=== PATIENT | male | born 1955 | race Caucasian/White ===

== ENCOUNTER 2017-06-27 08:00 | Inpatient (IN) | payer BC, OTHER ==
[2017-06-27 08:37] VITALS: BMI 32.3
[2017-07-08] MEDS ORDERED: Vancomycin HCl 1.5 GM in Sodium Chloride 0.9% 250 ML 300 ML IVPB ONE (07:15)
[2017-07-08] MEDS ORDERED: Sodium Chloride 0.9% 100 ML ONE (07:20)
[2017-07-08] MEDS ORDERED: Midazolam HCl 2 mg/2 ml Vial ONE (08:06)
[2017-07-08] MEDS ORDERED: Fentanyl 100 MCG/2 ML VIAL ONE ×2 (08:06→10:44)
[2017-07-08] MEDS ORDERED: Ketorolac Tromethamine 30 MG/ML VIAL IVP PRN (08:40)
[2017-07-08] MEDS ORDERED: Ondansetron HCl/PF 4 MG/2 ML Vial IVP PRN ×3 (08:40→11:51)
[2017-07-08] MEDS ORDERED: traMADol HCl 50 MG TAB PO PRN ×3 (08:40→11:51)
[2017-07-08] MEDS ORDERED: HYDROcodone/Acetaminophen 10/325 mg Tablet PO PRN (08:40)
[2017-07-08] MEDS ORDERED: Bupivacaine 0.5% 50 ML in Sodium Chloride 0.9% 50 ML NERVE BLCK SCH (08:40)
[2017-07-08] MEDS ORDERED: Promethazine HCl 25 MG/ML VIAL IM PRN ×3 (08:40→11:51)
[2017-07-08] MEDS ORDERED: Zolpidem Tartrate 5 MG TAB PO PRN ×2 (08:40→11:51)
[2017-07-08] MEDS ORDERED: Fentanyl 100 MCG/2 ML VIAL IV PRN (08:41)
[2017-07-08] MEDS ORDERED: Bupivacaine PF 0.5% 30 ML VIAL ONE (09:47)
[2017-07-08] MEDS ORDERED: CEFAZOLIN/Water 2 GM/20 ML SYRINGE ONE (09:54)
[2017-07-08] MEDS ORDERED: Lidocaine 1% PF 5 ML VIAL ONE (10:42)
[2017-07-08] MEDS ORDERED: PROPOFOL 200 MG/20 ML VIAL ONE (10:42)
[2017-07-08] MEDS ORDERED: Promethazine HCl 25 MG/ML VIAL SLOW IVP PRN (11:00)
[2017-07-08] MEDS ORDERED: Acetaminophen 325 MG TAB PO PRN (11:51)
[2017-07-08] MEDS ORDERED: diphenhydrAMINE 25 MG CAP PO PRN (11:51)
[2017-07-08] MEDS ORDERED: Tranexamic Acid 1,000 MG in Sodium Chloride 0.9% 100 ML IVPB SCH (12:00)
[2017-07-08] MEDS ORDERED: Ropivacaine 0.5% HCl/PF (150 MG/30 ML VIAL) ONE (12:32)
[2017-07-08] MEDS ORDERED: Ropivacaine 0.2% HCl/PF (40 MG/20 ML VIAL) ONE (12:32)
--- NOTE | 2017-07-08 12:41 | OP ---
DATE OF SURGERY: 07/08/2017 PREOPERATIVE DIAGNOSIS: Left knee osteoarthrosis. POSTOPERATIVE DIAGNOSIS: Left knee osteoarthrosis. PROCEDURE PERFORMED: Left total knee replacement using [employer] pinless navigation. SURGEON: Devon Gregory M.D. ENVIRONMENTAL INTERN: Yash Diaz PA-C. BLOOD LOSS: Minimal. COMPLICATIONS: None. He had general anesthetic. He also had a preoperative block. IMPLANTS: To the left knee with a [employer] total knee system. The femur was a size 7 cruci ate retaining. We used a size 7 universal tibial baseplate. We used a 35 x 10 X3 patella. We used a 7 x 9 mm CSX3 tibial bearing. CONDITION: He did go to the recovery room in stable condition. INDICATIONS: A 62-year-old active male who has failed nonoperative treatment for left knee pain and at this time he wanted to have his knee replaced. PROCEDURE IN DETAIL: After all appropriate consent forms were explained and signed, the patient was taken back to the Operating Room and at this time was given general anesthetic. Once the level of an esthesia was appropriate, a well-padded tourniquet was placed on the left leg and the leg was then pr epped and draped in standard surgical fashion. The limb was exsanguinated and tourniquet taken up to 300 mmHg. Midline incision was made with a 10 blade down through the skin and subcutaneous tissue. Bovie electrocautery was used to coagulate any brisk venous bleeding. A new blade was used to make a medial parapatellar arthrotomy. Small subperiosteal release was performed medially and excess fat pad was removed. The knee was flexed up to gain access to the femur. The femur was navigated and di stal femoral resection was made. Epicondylar access was used to align our sizing jig and this was pi nned in place. We sized our femur to be a 7, 4:1 cutting block was applied and pinned. Anterior and posterior chamfer cuts were then made. We navigated out our proximal tibia and made our proximal ti bial resection. Spreaders were used to remove any posterior osteophytes off the back of the femur as well as remaining meniscal tissue. A long alignment philippe was then used to achieve correct rotation o f our tibial baseplate and a size 7 was chosen. This was pinned in place. We trialed the polyethylen e and a 7 x 9 mm CSX3 polyethylene gave us full extension and good stability throughout range of natacha on. Two towel clips and a saw were used to cut our patella. Three lug nuts were drilled and 35 x 10 X3 patella was trialed which sat nicely in the trochlear groove. We then drilled our femur and punc hed our tibia. All components were removed. The knee was thoroughly irrigated and dried. Cement was mixed into the cement gun on the back table. Components were then placed. The knee was held out in full extension until the cement had dried. All excess bone cement was removed. Multiple #2 Vicryl stitches as well as a Quill was used to close our extensor mechanism. 0 Quill followed by a running Monoderm was then used to close the skin. Surgicel glue was then used on the skin. Once this had dr alicja, soft tissue dressing was applied to the limb, tourniquet was let down, and the toes pinked up ni italo. The patient was then awakened and taken to the Recovery Room in stable condition. All counts were correct at the end of the case. The patient did receive preoperative IV antibiotics. The patie nt was injected with Exparel for postoperative pain relief.
[2017-07-08] MEDS ORDERED: hydrALAZINE 20 MG/ML VIAL SLOW IVP PRN (13:11)
[2017-07-08] MEDS: Sodium Chloride 0.9% 1,000 ML IV SCH ×2 (13:26→20:54)
[2017-07-08] MEDS: Ondansetron ODT 4 MG TAB PO PRN (16:38)
[2017-07-08] MEDS ORDERED: metFORMIN 500 MG TAB PO SCH (17:00)
[2017-07-08] MEDS ORDERED: Pravastatin Sodium 20 MG TAB PO SCH (17:00)
[2017-07-08] MEDS ORDERED: CEFAZOLIN/Water 2 GM/20 ML SYRINGE SLOW IVP SCH (18:00)
[2017-07-08] MEDS: metFORMIN 500 MG TAB PO SCH (18:59)
[2017-07-08] MEDS ORDERED: Vancomycin HCl 1.5 GM in Sodium Chloride 0.9% 250 ML 300 ML IVPB SCH (20:00)
[2017-07-08] MEDS: Aspirin 81 mg Enteric Coated Tablet PO SCH (20:45)
[2017-07-08] MEDS: Ferrous Gluconate 324 MG TAB PO SCH (20:45)
[2017-07-08] MEDS: Senokot S 8.6-50 MG TAB PO SCH (20:45)
[2017-07-08] MEDS: CEFAZOLIN/Water 2 GM/20 ML SYRINGE SLOW IVP SCH (20:48)
[2017-07-08] MEDS ORDERED: Simvastatin 5 MG TAB PO SCH (21:00)
--- NOTE | 2017-07-08 23:45 | PDOC.PN ---
- Subjective Encounter Start Date: 07/08/17 Encounter Start Time: 14:30 Patient seen and examined for med mngt. No CP/SOb/palpitations. No new complaints. No overnight events - Objective MAR Reviewed: Yes Vital Signs & Weight: Vital Signs (12 hours) Temp Pulse Resp BP Pulse Ox 07/08/17 19:50 97.9 F 68 18 128/72 97 07/08/17 16:00 97.3 F L 94 20 96 07/08/17 14:07 97.3 F L 94 20 164/74 H 94 L Weight Weight 245 lb I&O: 07/07/17 07/08/17 07/09/17 06:59 06:59 06:59 Intake Total 1870 Output Total 1050 Balance 820 Additional Labs: Accuchecks 07/08/17 13:13 POC Glucose 146 H Laboratory Tests 11/26/11 07/04/17 07/04/17 09:30 10:15 10:15 Hgb 12.1 L Sodium 139 Potassium 4.2 BUN 17 Hemoglobin A1c 4.5 EKG Reviewed by me: Yes (SR) Phys Exam - Physical Examination Constitutional: NAD Respiratory: no wheezing, no rhonchi Cardiovascular: RRR, no rub Gastrointestinal: soft, non-tender, positive bowel sounds Musculoskeletal: no edema Neurological: moves all 4 limbs Dx/Plan (1) HTN (hypertension) Code(s): I10 - ESSENTIAL (PRIMARY) HYPERTENSION Status: Chronic (2) Hypothyroidism Code(s): E03.9 - HYPOTHYROIDISM, UNSPECIFIED Status: Chronic (3) Obesity (BMI 30.0-34.9) Code(s): E66.9 - OBESITY, UNSPECIFIED Status: Chronic (4) Well controlled type 2 diabetes mellitus Code(s): E11.9 - TYPE 2 DIABETES MELLITUS WITHOUT COMPLICATIONS Status: Chronic (5) HLD (hyperlipidemia) Code(s): E78.5 - HYPERLIPIDEMIA, UNSPECIFIED Status: Chronic - Plan plan discussed w/ family, PT/OT, DVT proph w/SCDs Cont Lisinopril, Levothyroxine, Metformin and Statins -: No need to start sliding scale -: Cont current meds as below -: AM labs Review of Systems - Review of Systems Respiratory: negative: Cough, Dry, Shortness of Breath, Hemoptysis, SOB with Excertion, Pleuritic Pain, Sputum, Wheezing Cardiovascular: negative: chest pain, palpitations, orthopnea, paroxysmal nocturnal dyspnea, edema, light headedness, other Gastrointestinal: negative: Nausea, Vomiting, Abdominal Pain, Diarrhea, Constipation, Melena, Hematochezia, Other - Medications/Allergies Allergies/Adverse Reactions: Allergies Allergy/AdvReac Type Severity Reaction Status Date / Time No Known Allergies Allergy Verified 06/27/17 08:38 Medications: Current Medications Acetaminophen (Tylenol) 650 mg PO Q4H PRN PRN Reason: BREWER/ T > 101F; Mild Pain (1-3) Hydrocodone Bitart/Acetaminophen (Leonard 10/325) 1 tab PO Q4H PRN PRN Reason: Pain (1-3) Last Admin: 07/08/17 19:04 Dose: 1 tab Hydrocodone Bitart/Acetaminophen (Leonard 10/325) 2 tab PO Q4H PRN PRN Reason: PAIN (4-6) Allopurinol (Zyloprim) 300 mg PO DAILY [facility] Aspirin (Ecotrin) 81 mg PO BID [facility] Last Admin: 07/08/17 20:45 Dose: 81 mg Cefazolin Sodium (Ancef) 2 gm SLOW IVP 0500,1300,2100 [facility] Stop: 07/09/17 05:01 Last Admin: 07/08/17 20:48 Dose: 2 gm Celecoxib (Celebrex) 200 mg PO DAILY [facility] Cholecalciferol (Vitamin D3) 1,000 units PO DAILY [facility] Diphenhydramine HCl (Benadryl) 25 mg PO Q6H PRN PRN Reason: Itching Fentanyl (Sublimaze) 50 mcg IV Q1H PRN PRN Reason: BT PAIN Ferrous Gluconate (Fergon) 324 mg PO BID [facility] Last Admin: 07/08/17 20:45 Dose: 324 mg Hydralazine HCl (Apresoline) 5 mg SLOW IVP Q4H PRN PRN Reason: SBP Greater Than 180 Bupivacaine HCl 50 ml/ Sodium (Chloride) 100 mls @ 0 mls/hr NERVE BLCK INF [facility] PRN Reason: As Directed Sodium Chloride (Normal Saline 0.9%) 1,000 mls @ 100 mls/hr IV .Q10H [facility] Last Admin: 07/08/17 20:54 Dose: Not Given Iron/Minerals/Multivitamins (Theragran M) 1 tab PO DAILY [facility] Ketorolac Tromethamine (Toradol) 30 mg IVP Q6H PRN PRN Reason: Moderate Pain (4-6) Stop: 07/11/17 08:41 Levothyroxine Sodium (Synthroid) 25 mcg PO 0600 [facility] Lisinopril (Zestril) 5 mg PO DAILY [facility] Metformin HCl (Glucophage) 1,000 mg PO BID-[facility] Last Admin: 07/08/17 18:59 Dose: 1,000 mg Ondansetron HCl (Zofran) 4 mg IVP Q6H PRN PRN Reason: Nausea/Vomiting Ondansetron HCl (Zofran Odt) 4 mg PO Q6H PRN PRN Reason: Nausea/Vomiting Last Admin: 07/08/17 16:38 Dose: 4 mg Promethazine HCl (Phenergan) 12.5 mg IM Q4H PRN PRN Reason: Nausea/Vomiting Senna/Docusate Sodium (Senokot S) 2 tab PO BID [facility] Last Admin: 07/08/17 20:45 Dose: 2 tab Simvastatin (Zocor) 10 mg PO [facility] Last Admin: 07/08/17 20:46 Dose: 10 mg Sodium Chloride (Flush - Normal Saline) 10 ml IVF PRN PRN PRN Reason: Saline Flush Tramadol HCl (Ultram) 100 mg PO Q6H PRN PRN Reason: Mild Pain (1-3) Zolpidem Tartrate (Ambien) 5 mg PO HSPRN PRN PRN Reason: Insomnia
[2017-07-09] MEDS: HYDROcodone/Acetaminophen 10/325 mg Tablet PO PRN ×2 (02:46→13:24)
[2017-07-09 03:57] LABS: Hemoglobin 10.9 g/dL (14.0-18.0); Mean Corpuscular HGB CONC 34.1 g/dL (32.0-36.0); Mean Corpuscular Hemoglobin 30.1 pg (27.0-31.0); Mean Corpuscular Volume 88.4 fl (80.0-94.0); Platelet Count 141 thou/uL (130-400); RBC Distribution Width 12.8 % (11.5-14.5); Red Blood Cell (RBC) Count 3.61 mill/uL (4.70-6.10); White Blood Cell (WBC) Count 9.4 thou/uL (4.8-10.8)
[2017-07-09] MEDS: CEFAZOLIN/Water 2 GM/20 ML SYRINGE SLOW IVP SCH (05:24)
[2017-07-09] MEDS ORDERED: Levothyroxine Sodium 25 MCG TAB PO SCH (06:00)
[2017-07-09] MEDS: metFORMIN 500 MG TAB PO SCH (07:18)
[2017-07-09] MEDS: Ferrous Gluconate 324 MG TAB PO SCH (07:20)
[2017-07-09] MEDS: Senokot S 8.6-50 MG TAB PO SCH (07:21)
[2017-07-09] MEDS: Aspirin 81 mg Enteric Coated Tablet PO SCH (07:21)
[2017-07-09] MEDS: Sodium Chloride 0.9% 1,000 ML IV SCH (07:23)
[2017-07-09] MEDS ORDERED: Multivitamin W/ Minerals 1 TAB PO SCH (09:00)
[2017-07-09] MEDS ORDERED: Lisinopril 5 MG TAB PO SCH (09:00)
[2017-07-09] MEDS ORDERED: Non-Formulary Item 1 EACH (Cholecalciferol (Vitamin D3) [Vitamin D3] 1,000 UNIT) PO SCH (09:00)
[2017-07-09] MEDS ORDERED: Allopurinol 300 MG TAB PO SCH (09:00)
[2017-07-09 09:03] VITALS: BP 136/70; TEMP 98.8
--- NOTE | 2017-07-09 10:28 | DIS ---
DATE OF ADMISSION: 07/08/2017 DATE OF DISCHARGE: 07/09/2017 PRIMARY CARE PHYSICIAN: Martina Frey. DISCHARGE DISPOSITION: Home. PRIMARY DISCHARGE DIAGNOSIS: Status post left total knee replacement. SECONDARY DISCHARGE DIAGNOSES: Normocytic normochromic anemia, diabetes type 2, gout, dyslipidemia, hypertension, hypothyroidism, and obesity with body mass index 32. PRIMARY PROCEDURE/OPERATION: Left total knee replacement by Dr. Bri Osorio. RADIOLOGICAL INVESTIGATION: None. SIGNIFICANT LABORATORY DATA: WBC 9.4, hemoglobin 10.9, platelet 141. Accu-Chek 146. DISCHARGE MEDICATIONS: Allopurinol 300 mg p.o. daily, aspirin 81 mg p.o. b.i.d., vitamin D3 1000 uni ts p.o. daily, Synthroid 25 mcg p.o. daily, lisinopril 5 mg p.o. daily, metformin 1000 mg p.o. b.i.d. , and pravastatin 20 mg p.o. at bedtime. CONTRAINDICATIONS: None. CODE STATUS: FULL CODE. INPATIENT CONSULTANTS: Dr. Bri Osorio was primary while in hospital. Dr. Rizvi was consulted for [facility]. TEST RESULTS PENDING ON DISCHARGE: None. ALLERGIES: No known drug allergy. DISCHARGE PLAN: Post hospital, patient will follow up with primary care physician in 1 week. The yoon parraandra already has outpatient followup for rehabilitation and he will follow up with Dr. Bri whitehead s sonja. HOSPITAL COURSE: A 62-year-old male who has osteoarthritis. He failed all conservative approach and predominantly left knee osteoarthritis was bothering him and it was affecting his quality of life an d that is why he was electively admitted by Dr. Bri Osorio for left total knee replacement which was done on 07/08/2017 without any complication. Postoperatively, the patient did very well. He did no t have any overnight event. His pain is controlled with oral pain medication. He is relatively doin g very well with [facility] protocol treatment. While in hospital, he was given aspirin for DV T prophylaxis. We resumed his home medication while in hospital as well as upon discharge. I have seen and examined at bedside this patient and review of system reviewed with him and negative. PHYSICAL EXAMINATION: VITAL SIGNS: Currently, temperature 98.8, pulse 82, respiratory rate 20, saturation 95% on room air, blood pressure 136/70, weight 245 pounds. GENERAL: The patient is currently alert, awake, no acute distress. HEAD: Normocephalic, atraumatic. EYES: Pupils round and reactive to light. Extraocular muscle intact. ENT: Oropharynx within normal limits. Moist mucous membranes. No oral lesion, no pharyngeal erythe ma, no exudate. NECK: Supple, no JVD, no thyromegaly, no carotid bruit. LUNGS: Clear to auscultation without any rhonchi or rales. CARDIAC: S1 and S2 appears regular without any significant murmur. ABDOMEN: Soft and benign without any tenderness. EXTREMITIES: No edema. Surgical site on the left knee is clean and healthy, covered with a dressing . NEUROLOGIC: Nonfocal examination. Patient will continue above-mentioned medication. Pain medication will be prescribed by primary team . We will sign off.
[2017-07-09] MEDS: Ondansetron ODT 4 MG TAB PO PRN (13:03)
[2017-07-09] MEDS ORDERED: Ropivacaine 0.2% 550 ML 550 ML NERVE BLCK SCH (13:11)
[2017-07-11] MEDS ORDERED: CeleCOXIB 100 MG CAP PO SCH (09:00)
== END 2017-07-09 15:59 | disposition home or self-care (01) | DRG 470 ==
LOC: SURG A 07-08 06:48 → SJJU 07-08 12:44
PROVIDERS: ADMIT Orthopaedic Surgery; ATTEND Orthopaedic Surgery
PROC: 0SRD0J9 Replacement of Left Knee Joint with Synthetic Substitute, Cemented, Open Approach (ICD-10-PCS; principal; 2017-07-08)
DX: M17.12 Unilateral primary osteoarthritis, left knee (principal); I10 Essential (primary) hypertension; E11.9 Type 2 diabetes mellitus without complications; E66.9 Obesity, unspecified; D64.9 Anemia, unspecified; E78.5 Hyperlipidemia, unspecified; E03.9 Hypothyroidism, unspecified; Z68.32 Body mass index [BMI] 32.0-32.9, adult; Z79.899 Other long term (current) drug therapy; Z79.84 Long term (current) use of oral hypoglycemic drugs; R55 Syncope and collapse; K21.9 Gastro-esophageal reflux disease without esophagitis
CPT/HCPCS: 36415; 36416; 85027; A4306; C1713; C1776; G8978-GP-CK; G8979-GP-CJ; J1885; J2001; J2250; J2704; J2795; J3010; J3370; J3490; J7050; Q0162; S0020

== ENCOUNTER 2017-06-27 08:28 | Outpatient (CLI) | payer BC ==
[2017-06-27 09:56] LABS: Bilirubin Negative (Negative); Blood, Urine Negative (Negative); Clarity CLEAR (Clear); Glucose, Urine (Dipstick) Negative (Negative); Leukocyte Negative (Negative); Nitrite Negative (Negative); Protein, Urine (Dipstick) Negative (Neg-Trace); Specific Gravity, Urine 1.021 (1.002-1.036); Urobilinogen 0.2 mg/dL (0.2-1.0)
[2017-06-27 09:59] LABS: Bacteria/HPF None Seen HPF (None Seen); Hyaline Casts/LPF 0-3 HYALINE CAST LPF (0-3 Hyaline); RBC/HPF 0-3 HPF (0-3); Squamous Epithelial None Seen HPF (0-3); WBC/HPF None Seen HPF (0-3)
== END 2017-06-27 08:29 | disposition home or self-care (01) ==
LOC: LABBT 08:28
PROVIDERS: ATTEND Orthopaedic Surgery
DX: Z01.818 Encounter for other preprocedural examination (principal); M17.12 Unilateral primary osteoarthritis, left knee
CPT/HCPCS: 81001; 87081; 93005; 93010

== ENCOUNTER 2017-07-04 09:41 | Outpatient (CLI) | payer BC ==
[2017-07-04 10:20] LABS: #Eosinphils 0.1 thou/uL (0.0-0.7); #Lymphocytes 1.4 thou/uL (1.20-3.40); #Monocytes 0.4 thou/uL (0.11-0.59); #Neutrophils 4.2 thou/uL (1.40-6.50); %Basophils 0.3 % (0.0-1.0); %Eosinophils 1.9 % (0.0-10.0); %Lymphocytes 23.4 % (21.0-51.0); %Monocytes 5.9 % (0.0-10.0); %Neutrophils 68.6 % (42.0-75.0); Hemoglobin 12.1 g/dL (14.0-18.0); Mean Corpuscular HGB CONC 35.1 g/dL (32.0-36.0); Mean Corpuscular Hemoglobin 30.5 pg (27.0-31.0); Platelet Count 155 thou/uL (130-400); RBC Distribution Width 12.4 % (11.5-14.5); Red Blood Cell (RBC) Count 3.95 mill/uL (4.70-6.10); White Blood Cell (WBC) Count 6.1 thou/uL (4.8-10.8)
[2017-07-04 10:27] LABS: Prothrombin Time 13.1 SEC (12.0-14.7)
[2017-07-04 10:31] LABS: PTT 27.4 SEC (22.9-36.1)
[2017-07-04 10:40] LABS: Anion Gap 14 mmol/L (10-20); BUN (Urea Nitrogen) 17 mg/dL (8.4-25.7); Calc. Creatinine Clearance 0 mL/min (70-130); Calcium 9.4 mg/dL (7.8-10.44); Carbon Dioxide 22 mmol/L (23-31); Chloride 107 mmol/L (98-107); Estimated GFR-MDRD Greater than 90; Glucose 110 mg/dL (80-115); Potassium 4.2 mmol/L (3.5-5.1); Sodium 139 mmol/L (136-145)
== END 2017-07-04 09:42 | disposition home or self-care (01) ==
LOC: LABBT 09:41
PROVIDERS: ATTEND Orthopaedic Surgery
DX: Z01.818 Encounter for other preprocedural examination (principal); M17.12 Unilateral primary osteoarthritis, left knee
CPT/HCPCS: 80048; 85025; 85610; 85730; 86850; 86900; 86901

== ENCOUNTER 2017-07-16 17:00 | Emergency (ER) | payer BC ==
[2017-07-16] MEDS ORDERED: Cyclobenzaprine 10 MG TAB ONE ×2 (17:50→17:51)
[2017-07-16] MEDS ORDERED: Morphine 4 MG/ML VIAL ONE (17:51)
== END 2017-07-16 18:20 | disposition home or self-care (01) ==
LOC: ERS 17:00
DX: M54.5 Low back pain (principal); I48.91 Unspecified atrial fibrillation; K21.9 Gastro-esophageal reflux disease without esophagitis; M10.9 Gout, unspecified; E11.9 Type 2 diabetes mellitus without complications; E78.5 Hyperlipidemia, unspecified; I10 Essential (primary) hypertension; Z87.891 Personal history of nicotine dependence; Z79.891 Long term (current) use of opiate analgesic; Z79.82 Long term (current) use of aspirin; Z79.899 Other long term (current) drug therapy
CPT/HCPCS: 96372; J2270

== ENCOUNTER 2020-11-09 07:43 | Outpatient (CLI) | payer OTHER, MEDICARE | END 2020-11-09 07:44 | disposition home or self-care (01) | LOC: TBSIIMAG 07:43 | PROVIDERS: ATTEND Urology | DX: R97.20 Elevated prostate specific antigen [PSA] (principal) | CPT/HCPCS: 72197 ==